=== PATIENT | female | born 1980 | race Caucasian/White ===

== ENCOUNTER 2020-06-07 21:26 | Observation (INO) ==
[2020-06-07] MEDS ORDERED: *HR* LORazepam 1 MG TABLET PO ONE (21:47)
[2020-06-07 22:47] LABS: Basophils # 0.1 K/mcL (0.0-0.2); Basophils % 0.5 %; Eosinophils # 0.2 K/mcL (0.0-0.6); Eosinophils % 1.6 %; Hematocrit 37.7 % (35.3-44.9); Hemoglobin 12.4 g/dL (11.5-15.4); Immature Granulocytes % 0.4 % (0-4); Lymphocytes # 2.4 K/mcL (0.6-4.6); Lymphocytes % 25.2 %; Mean Corpuscular HGB Conc 32.9 g/dL (31.6-35.5); Mean Corpuscular Hemoglobin 28.9 pg (28.0-33.3); Mean Corpuscular Volume 87.9 fL (83.0-100.0); Mean Platelet Volume 9.3 fL (9.4-12.4); Monocytes # 0.7 K/mcL (0.0-1.3); Monocytes % 7.4 %; Platelet Count 352 K/mcL (140-400); Red Blood Count 4.29 M/mcL (3.82-4.97); Red Cell Distribution Width 13.7 % (11.5-14.5); Segmented Neutrophils % 64.9 %; White Blood Count 9.3 K/mcL (4.3-11.1)
[2020-06-07 22:56] LABS: Bilirubin,Urine Negative (Negative); Blood,Urine Negative (Negative); Clarity,Urine Clear (Clear); Color,Urine Light-Yellow (Yellow); Glucose,Urine (UA) Normal (Normal); Ketones,Urine Negative (Negative); Leukocyte Esterase,Urine Negative (Negative); Nitrite,Urine Negative (Negative); Protein,Urine Negative (Neg-Trace); Specific Gravity,Urine 1.017 (1.010-1.025); Urobilinogen,Urine Normal (Normal)
[2020-06-07 23:08] LABS: Amphetamine Screen,Urine Negative ng/mL (Cutoff=1000); Barbiturate Screen,Urine Negative ng/mL (Cutoff=200); Benzodiazepines Screen,Urine Positive ng/mL (Cutoff=200); Cannabinoid Screen,Urine Negative ng/mL (Cutoff = 50); Cocaine Screen,Urine Negative ng/mL (Cutoff= 300); Opiate Screen,Urine Negative ng/mL (Cutoff=300); Phencyclidine Screen,Urine Negative ng/mL (Cutoff=25)
[2020-06-07 23:19] LABS: Acetaminophen < 10 mcg/mL (10-20); BUN/Creatinine Ratio 14 (6-26); Blood Urea Nitrogen 8 mg/dL (6-20); Calcium 8.9 mg/dL (8.6-10.3); Carbon Dioxide 25 mEq/L (23-29); Chloride 105 mEq/L (98-107); Ethanol < 10 mg/dL (Less than 10); Glucose 100 mg/dL (70-105); Osmolality,Calculated 282 (280-300); Potassium 4.5 mEq/L (3.5-5.1); Salicylate < 2.5 mg/dL (15.0-30.0); Sodium 137 mEq/L (136-145); eGFR For African Americans > 60 (> 60); eGFR For Non-African Americans > 60 (> 60)
[2020-06-08] MEDS ORDERED: Haloperidol Lactate 5 MG/ML VIAL IM ONE (01:15)
[2020-06-08] MEDS ORDERED: Mag Hydrox/Al Hydrox/Simeth 30 ML UDC PO PRN (01:54)
[2020-06-08] MEDS ORDERED: MOM Conc 10 ML UD.LIQ PO PRN (01:54)
[2020-06-08] MEDS ORDERED: traZODone 50 MG TABLET PO PRN (01:54)
[2020-06-08] MEDS ORDERED: Ibuprofen 400 MG TABLET PO PRN (01:54)
[2020-06-08] MEDS ORDERED: *HR* LORazepam 2 MG/ML VIAL IM PRN (01:54)
[2020-06-08] MEDS ORDERED: haloperidoL 5 MG TABLET PO PRN (01:54)
[2020-06-08] MEDS ORDERED: hydrOXYzine pamoate 25 MG CAPSULE PO PRN (01:54)
[2020-06-08] MEDS ORDERED: *HR* LORazepam 1 MG TABLET PO PRN (01:54)
[2020-06-08] MEDS ORDERED: Haloperidol Lactate 5 MG/ML VIAL IM PRN (01:54)
[2020-06-08] MEDS ORDERED: Nicotine 21 MG PATCH.TD24 TD SCH (02:30)
[2020-06-08 08:57] VITALS: BP 98/65
== END 2020-06-08 11:45 | disposition home or self-care (01) ==
LOC: 1ANU 21:26 → EMEROOARM 21:26 → 1ANU 06-08 02:02
PROVIDERS: ADMIT Psychiatry & Neurology Psychiatry; ATTEND Psychiatry & Neurology Psychiatry